=== PATIENT | female | born 1940 | race Caucasian/White ===

== ENCOUNTER 2023-08-03 21:12 | Inpatient (IN) | payer OTHER ==
[~2023-08-03] VITALS: Ht 165.1 cm; Wt 65.6 kg
[2023-08-03 22:45] VITALS: BP 116/59; PULSE 100; RESP 16; TEMP 97.8; O2SAT 100
[2023-08-03] MEDS ORDERED: DEXTROSE (50%) 50ML SYRG IV PRN (22:45)
[2023-08-03] MEDS ORDERED: ACETAMINOPHEN 325 MG TAB PO PRN (22:45)
[2023-08-03] MEDS: SODIUM CHLORIDE 0.9% 1,000 ML IV ONE (22:45)
[2023-08-03] MEDS ORDERED: MORPHINE SULFATE INJ 2 MG/ml SYRG IV PRN (22:45)
[2023-08-04] VITALS (7 sets, daily range): BP systolic 109–149; BP diastolic 51–64; PULSE 73–89; RESP 18–20; TEMP 97.9–98.4; O2SAT 95–100
[2023-08-04] MEDS: levoFLOXacin 500MG 100 ML IV ONE ×2 (01:32→09:37)
[2023-08-04] MEDS: metroNIDAZOLE 500MG/100ML 100 ML IV SCH (01:32)
[2023-08-04 05:48] LABS: Chloride 110 mmol/L (98-107); Potassium 3.7 mmol/L (3.5-5.1); Sodium 140 mmol/L (136-145)
[2023-08-04 05:49] LABS: Anion Gap 6 (5-15); Carbon Dioxide 24 mmol/L (20-30)
[2023-08-04 05:54] LABS: BUN/Creatinine Ratio 18.9 (10.0-20.0); Blood Urea Nitrogen 23 mg/dL (9-23); Glucose 104 mg/dL (74-106)
[2023-08-04 06:20] LABS: Basophils # (auto) 0 10 ^3/uL (0-0.2); Basophils % (auto) 0.6 % (0.0-2.0); Eosinophils # (auto) 0.1 10 ^3/uL (0-0.8); Eosinophils % (auto) 1.3 % (0.0-7.0); Hematocrit 30.5 % (36.0-46.0); Hemoglobin 9.9 g/dL (12.2-16.2); Lymphocytes # (auto) 0.7 10 ^3/uL (0.4-5.4); Lymphocytes % (auto) 17.8 % (10.0-50.0); Mean Corpuscular Hemoglobin 28.6 pg (28.0-32.0); Mean Corpuscular Hgb Conc. 32.4 g/dL (32.0-36.0); Mean Corpuscular Volume 88.2 fL (80.0-100.0); Monocytes # (auto) 0.5 10 ^3/uL (0-1.3); Monocytes % (auto) 11.5 % (0.0-12.0); Neutrophils # (auto) 2.7 10 ^3/uL (1.6-8.6); Neutrophils % (auto) 68.8 % (37.0-80.0); Nucleated Red Blood Cells % 0.1 %; Red Blood Cells 3.45 10^6/uL (4.0-5.20); Red Cell Distribution Width 15.5 % (11.8-14.3); White Blood Cell 3.9 10^3/uL (4.4-10.8)
[2023-08-04] MEDS: InsuLIN REG 1unit/0.01ml Soln (100units/ml) SC SCH (06:37)
[2023-08-04] MEDS: ACCU-CHEK COMFORT CURVE STRIP VI SCH (06:37)
[2023-08-04] MEDS: PANTOPRAZOLE 40 MG/10 ML VIAL INJ IV SCH (09:37)
[2023-08-04] MEDS: HYDROcodone-ACET 5/325MG TAB PO PRN (09:44)
[2023-08-04] MEDS ORDERED: LOSA50TA46 PO (12:00)
[2023-08-04] MEDS ORDERED: GLIP10TA9 PO (12:00)
[2023-08-04] MEDS ORDERED: METF-372 PO (12:00)
[2023-08-04] MEDS ORDERED: FURO80TA3 PO (12:00)
[2023-08-04] MEDS ORDERED: AML5T PO (12:00)
[2023-08-04] MEDS ORDERED: DICY10CA PO (12:00)
[2023-08-04] MEDS ORDERED: POTA10TA51 PO (12:00)
[2023-08-04] MEDS ORDERED: DOXY-286 PO (12:00)
[2023-08-05] VITALS (7 sets, daily range): BP systolic 106–165; BP diastolic 43–90; PULSE 83–96; RESP 14–18; TEMP 97.5–98.6; O2SAT 96–98
[2023-08-05] MEDS: hydrALAZINE HCL 20 MG/ML VL IV PRN (05:19)
[2023-08-05 06:31] LABS: Basophils # (auto) 0 10 ^3/uL (0-0.2); Basophils % (auto) 0.4 % (0.0-2.0); Eosinophils # (auto) 0 10 ^3/uL (0-0.8); Eosinophils % (auto) 1.1 % (0.0-7.0); Hematocrit 29.7 % (36.0-46.0); Hemoglobin 9.8 g/dL (12.2-16.2); Lymphocytes # (auto) 0.7 10 ^3/uL (0.4-5.4); Lymphocytes % (auto) 16.8 % (10.0-50.0); Mean Corpuscular Hemoglobin 29.2 pg (28.0-32.0); Mean Corpuscular Volume 88.3 fL (80.0-100.0); Monocytes # (auto) 0.4 10 ^3/uL (0-1.3); Monocytes % (auto) 9.7 % (0.0-12.0); Neutrophils # (auto) 2.9 10 ^3/uL (1.6-8.6); Red Blood Cells 3.36 10^6/uL (4.0-5.20); Red Cell Distribution Width 15.6 % (11.8-14.3)
[2023-08-05 06:36] LABS: Calcium 9.3 mg/dL (8.5-10.1); Chloride 110 mmol/L (98-107); Potassium 3.6 mmol/L (3.5-5.1); Sodium 140 mmol/L (136-145)
[2023-08-05 06:37] LABS: Anion Gap 8 (5-15); Carbon Dioxide 22 mmol/L (20-30)
[2023-08-05 06:42] LABS: BUN/Creatinine Ratio 10.6 (10.0-20.0); Blood Urea Nitrogen 15 mg/dL (9-23); Glucose 100 mg/dL (74-106)
[2023-08-05 09:01] LABS: Hepatitis B Surface Antigen Negative (Negative)
[2023-08-05 09:22] LABS: Hepatitis C Antibody Negative (Negative)
[2023-08-05] MEDS: levoFLOXacin 250MG 50 ML IV SCH (09:43)
[2023-08-05 11:00] LABS: INR 1.17 (0.9-1.15); Prothrombin Time 12.2 sec (9.3-11.8)
[2023-08-05] MEDS: ONDANSETRON HCL 4 MG/2 ML VIAL IV PRN (13:26)
[2023-08-05] MEDS: VANCOMYCIN HCL 125 MG CAP PO SCH (18:11)
[2023-08-05] MEDS: MUPIROCIN 2% OINT 15gm or 22gm FOR MRSA NARES TOP SCH (22:00)
[2023-08-06] VITALS (8 sets, daily range): BP systolic 127–164; BP diastolic 54–72; PULSE 69–90; RESP 16–20; TEMP 97.5–98.6; O2SAT 95–100
[2023-08-06] MEDS: LOSARTAN POTASSIUM 50 MG TAB PO SCH (08:41)
[2023-08-06] MEDS: amLODIPine BESYLATE 5 MG TAB PO SCH (08:42)
[2023-08-06] MEDS: IOHEXOL 300 MG/ML 100ML BOTTLE IJ ONE (10:42)
[2023-08-06] MEDS: MIDAZOLAM HCL 2MG/2ML 2ml VIAL (1mg/ml) IV ONE (13:45)
[2023-08-06] MEDS: fentaNYL CITRATE 100 MCG/2 ML VL IV ONE (13:45)
[2023-08-06] MEDS: LIDOCAINE 2%HCL (LOCAL ANESTH.) INJ 10ml MDV ONE (14:21)
[2023-08-06] MEDS: GELATIN 1 SPONGE SIZE 50 TOP ONE (14:32)
[2023-08-06] MEDS: amLODIPine BESYLATE 5 MG TAB PO ONE (16:43)
[2023-08-07] VITALS (7 sets, daily range): BP systolic 128–144; BP diastolic 53–70; PULSE 67–99; RESP 18–19; TEMP 97.5–98.3; O2SAT 97–99
[2023-08-07] MEDS: amLODIPine BESYLATE 5 MG TAB PO SCH (09:32)
[2023-08-07] MEDS: MIDAZOLAM HCL 2MG/2ML 2ml VIAL (1mg/ml) IV ONE (12:36)
[2023-08-07 18:19] LABS: Chloride 105 mmol/L (98-107); Potassium 3.4 mmol/L (3.5-5.1)
[2023-08-07 18:20] LABS: Anion Gap 9 (5-15); Calcium 9.3 mg/dL (8.5-10.1); Carbon Dioxide 21 mmol/L (20-30)
[2023-08-07 18:25] LABS: BUN/Creatinine Ratio 10.2 (10.0-20.0); Blood Urea Nitrogen 18 mg/dL (9-23); Glucose 324 mg/dL (74-106)
[2023-08-07 18:43] LABS: Sodium 135 mmol/L (136-145)
[2023-08-08 05:00] VITALS: BP 149/63; PULSE 77; RESP 17; TEMP 98; O2SAT 99
[2023-08-08 08:00] VITALS: PULSE 77; RESP 18; O2SAT 97
[2023-08-08 08:30] VITALS: PULSE 73
[2023-08-08 09:00] VITALS: BP 139/62; PULSE 77; RESP 18; TEMP 98.4; O2SAT 97
[2023-08-08 13:00] VITALS: BP 151/69; PULSE 74; RESP 19; TEMP 98.1; O2SAT 98
[2023-08-08] MEDS ORDERED: AML5T PO (16:39)
[2023-08-08 16:46] VITALS: BP 132/62; PULSE 81; RESP 19; TEMP 98.4; O2SAT 97
[2023-08-08] MEDS ORDERED: VANC125C3 PO (16:53)
[2023-08-08] MEDS: POTASSIUM EFFERVESENT TAB 25 MEQ PO ONE (17:29)
== END 2023-08-08 18:16 | disposition home or self-care (01) | DRG 371 ==
LOC: UNDOADMIN 22:48 → TELE-WESTW 22:48
PROVIDERS: ADMIT Internal Medicine; ATTEND Internal Medicine
PROC: 0T913ZX Drainage of Left Kidney, Percutaneous Approach, Diagnostic (ICD-10-PCS; principal; 2023-08-06)
PROC: 0TB18ZX Excision of Left Kidney, Via Natural or Artificial Opening Endoscopic, Diagnostic (ICD-10-PCS; 2023-08-06)
DX: A04.72 Enterocolitis due to Clostridium difficile, not specified as recurrent (principal); N17.0 Acute kidney failure with tubular necrosis; C64.2 Malignant neoplasm of left kidney, except renal pelvis; K51.30 Ulcerative (chronic) rectosigmoiditis without complications; N13.30 Unspecified hydronephrosis; N28.9 Disorder of kidney and ureter, unspecified; I10 Essential (primary) hypertension; Z79.84 Long term (current) use of oral hypoglycemic drugs; Z90.49 Acquired absence of other specified parts of digestive tract; Z87.891 Personal history of nicotine dependence; E11.65 Type 2 diabetes mellitus with hyperglycemia; N28.89 Other specified disorders of kidney and ureter
CPT/HCPCS: 36415; 74150; 74176; 74177; 76775; 76942; 80048; 82962; 85025; 85048; 85610; 85730; 86803; 87040; 87045; 87081; 87086; 87340; 87427; 87493; 97110; 97116; 97163; 97530; C9113; G0378; J1815; J1956; J2001; J2250; J2405; J3490